=== PATIENT | female | born 1995 | race Caucasian/White ===

== ENCOUNTER 2021-04-26 17:34 | Emergency (ER) | payer OTHER ==
[~2021-04-26] VITALS: Ht 162.6 cm; Wt 52.0 kg
[2021-04-26] MEDS ORDERED: MORPHINE SULFATE 4 MG/ML CPJ (NOT FOR IM USE) IV ONE (19:00)
[2021-04-26 20:07] LABS: BASOPHILS % 0.2 % (0.0-2.0); HEMATOCRIT. 44.2 % (36.0-48.0); HEMOGLOBIN. 15.2 g/dL (12.0-16.0); LYMPHOCYTES % 13.2 % (20.0-50.0); MEAN CORPUSCULAR HEMOGLOBIN 34.1 pg (28.0-32.0); MEAN CORPUSCULAR VOLUME 98.8 fL (81.0-99.0); MEAN PLATELET VOLUME 7.5 fl (7.4-10.4); MONOCYTES % 4.6 % (2.0-8.0); PLATELET 307 x1000/uL (130-400); RED BLOOD CELL COUNT 4.47 mill/uL (4.2-5.4); RED CELL DISTRIBUTION WIDTH 11.7 % (11.6-14.6)
[2021-04-26 20:19] LABS: INR 1.1; PROTHROMBIN TIME 11.4 sec (9.6-11.0)
[2021-04-26 20:24] LABS: HCG SCREEN NEGATIVE
[2021-04-26 20:25] LABS: CHLORIDE 112 mEq/L (98-107)
[2021-04-26] MEDS ORDERED: LIDOCAINE HCL/EPINEPHRINE 1%-EPI 1:100,000 50 ML VIAL INFIL ONE (20:30)
[2021-04-26] MEDS ORDERED: KETOROLAC 15MG/ML VIAL IV ONE (20:45)
[2021-04-26] MEDS ORDERED: LIDOCAINE HCL/EPINEPHRINE 1%-EPI 1:100,000 20 ML VIAL INFIL NR (20:45)
[2021-04-26] MEDS ORDERED: HYDR-4001 MT (20:55)
[2021-04-26] MEDS ORDERED: LIDOCAINE HCL/PF 1% 10 MG/ML 5ML VIAL INFIL NR (20:58)
[2021-04-26] MEDS ORDERED: LIDOCAINE HCL 1% 20ML VIAL (Pyxis) INJ INFIL ONE (21:00)
[2021-04-26] MEDS ORDERED: MORPHINE SULFATE 2 MG/ML CPJ (NOT FOR IM USE) IV NR (21:02)
[2021-04-26] MEDS ORDERED: IBUP-2030 MT (22:03)
[2021-04-26 22:20] VITALS: BP 115/66
== END 2021-04-26 22:36 | disposition home or self-care (01) ==
LOC: ER 17:55
DX: S52.592A Other fractures of lower end of left radius, initial encounter for closed fracture (principal); W18.39XA Other fall on same level, initial encounter; Y93.89 Activity, other specified; Y92.89 Other specified places as the place of occurrence of the external cause; Y99.8 Other external cause status; F12.10 Cannabis abuse, uncomplicated
CPT/HCPCS: 36415; 70450; 73080; 73090; 73110; 73130; 80053; 84703; 85025; 85610; 96374; 99285; J1885; J2270; J3490